=== PATIENT | male | born 1950 | race Caucasian/White ===

== ENCOUNTER 2018-03-05 11:52 | Emergency (ER) | payer BC, MEDICAID, MEDICARE ==
--- NOTE | 2018-03-05 13:00 | EDM.PDOC ---
ED HPI GENERAL MEDICAL PROBLEM - General Chief Complaint: Gastrointestinal Problem Stated Complaint: SYNCOPY Time Seen by Provider: 03/05/18 12:35 Source of Information: Reports: Patient, Family History Limitations: Reports: No Limitations - History of Present Illness INITIAL COMMENTS - FREE TEXT/NARRATIVE: Matheus [facility] by EMS following an apparent syncopal episode at approximately 2 am today. He got up to the bathroom, and that is the last thing he remembers. His cousin discovered him forenoon, and called EMS for transfer. Upon arrival, he is alert, orientated, and cooperative. His VSS. He also displays a blackened L forfoot in proximity to the 1st MTP joint, and dry gangrene is suspected. - Related Data Allergies Allergy/AdvReac Type Severity Reaction Status Date / Time No Known Allergies Allergy Verified 03/05/18 13:01 Home Meds: Home Meds Aspirin [[place] Aspirin] 81 mg PO DAILY 03/05/18 [History] Cholecalciferol (Vitamin D3) [Vitamin D3] 3,000 unit PO DAILY 03/05/18 [History] Cilostazol 100 mg PO BID 03/05/18 [History] Clopidogrel [Plavix] 75 mg PO BEDTIME 03/05/18 [History] Hydrochlorothiazide 12.5 mg PO DAILY 03/05/18 [History] Lisinopril 30 mg PO DAILY 03/05/18 [History] Magnesium 420 mg PO BID 03/05/18 [History] Metoprolol Succinate [Toprol XL 50mg] 5,025 mg PO BEDTIME 03/05/18 [History] Naproxen 250 mg PO BID PRN 03/05/18 [History] atorvaSTATin [Lipitor] 10 mg PO BEDTIME 03/05/18 [History] glipiZIDE [Glucotrol] 20 mg PO DAILY 03/05/18 [History] metFORMIN HCl [Metformin HCl] 1,500 mg PO BID 03/05/18 [History] Past Medical History Cardiovascular History: Reports: High Cholesterol, Hypertension Endocrine/Metabolic History: Reports: Diabetes, Type II ED ROS GENERAL - Review of Systems Review Of Systems: See Below Constitutional: Reports: Malaise, Fatigue HEENT: Reports: No Symptoms Respiratory: Reports: No Symptoms Cardiovascular: Reports: No Symptoms Endocrine: Reports: Fatigue, High Glucose GI/Abdominal: Reports: Diarrhea : Reports: Frequency, Incontinence Musculoskeletal: Reports: Muscle Pain (L flank), Muscle Stiffness Skin: Reports: Change in Color (blackened area overlying 1st MTP with adjacent exudate, and erythema extending into forefoot to mortise of L foot) Neurological: Reports: Pre-Existing Deficit, Syncope, Difficulty Walking Psychiatric: Reports: No Symptoms Hematologic/Lymphatic: Reports: No Symptoms Immunologic: Reports: No Symptoms - Physical Exam Exam: See Below Exam Limited By: No Limitations General Appearance: Alert, WD/WN, No Apparent Distress, Obese Eye Exam: Bilateral Eye: EOMI, Normal Inspection, PERRL Ears: Normal External Exam Nose: Normal Inspection Throat/Mouth: Other (poor dentition) Head Exam: Atraumatic, Normocephalic Neck: Normal Inspection, Supple Respiratory/Chest: No Respiratory Distress, Lungs Clear, No Accessory Muscle Use , Other (mild tenderness of lateral L costal margin) Cardiovascular: Regular Rate, Rhythm GI/Abdominal: Normal Bowel Sounds, Soft, No Organomegaly, No Distention, No Mass , Tender (L flank, no markings) (Male) Exam: No Hernia Rectal (Males) Exam: Deferred Neuro Exam (Abbreviated): Alert, CN II-XII Intact, Abnormal Reflexes, Sensory/ Motor Deficit Back Exam: Other (abrasions of upper back R>L) Extremities: Increased Warmth, Redness, Other (blackened areas of 1st MTP joint , with adjacent exudate and areas of erythmea extending accross forefoot) Psychiatric: Normal Mood, Flat Affect Skin Exam: Decubitus (L foot), Erythema, Increased Warmth Course - Vital Signs Text/Narrative:: Following assessment at the [facility], studies were performed including; ekg noting NSR, old Inf NM; chest x ray without infiltrates, normal cardiac size; CBC noted Hgb 14.8 gm, WBC 25,200, plts normal; CMP noted Cr 2.3, BUN 33; A1c 10.3%. Troponin I <0.017; noncontrast Head CT: old lacunar infarcts, no sign of bleeding or new CVA; case was discussed with [facility]...no beds; rediscussed with [facility]: no bed space; subsequently transfer accepted at [facility] per Dr Pablo. - Orders/Labs/Meds Orders: Active Orders 24 hr Category Date Time Status Chest 1V Frontal [CR] Stat Exams 03/05/18 12:53 Taken Head wo Cont [CT] Stat Exams 03/05/18 12:57 Taken UA W/MICROSCOPIC [URIN] Stat Lab 03/05/18 12:53 Ordered Sodium Chloride 0.9% [Normal Saline] 2,000 ml Med 03/05/18 14:15 Active IV ASDIRECTED Sodium Chloride 0.9% [Saline Flush] Med 03/05/18 14:03 Active 10 ml FLUSH ASDIRECTED PRN Peripheral IV Insertion Adult [OM.PC] Routine Oth 03/05/18 14:03 Ordered EKG 12 Lead [EK] Routine Ther 03/05/18 12:53 Ordered Medication Orders Sodium Chloride (Normal Saline) 2,000 mls @ 500 mls/hr IV ASDIRECTED ELSY Sodium Chloride (Saline Flush) 10 ml FLUSH ASDIRECTED PRN PRN Reason: Keep Vein Open Labs: Laboratory Tests 03/05/18 03/05/18 03/05/18 Range/Units 13:03 13:03 13:03 WBC 25.2 H (4.5-12.0) X10-3/uL RBC 4.95 (4.30-5.75) x10(6)uL Hgb 14.8 (11.5-15.5) g/dL Hct 44.0 (30.0-51.3) % MCV 88.9 (80-96) fL MCH 29.8 (27.7-33.6) pg MCHC 33.5 (32.2-35.4) g/dL RDW 12.0 (11.5-15.5) % Plt Count 457 H (125-369) X10(3)uL MPV 8.3 (7.4-10.4) fL Add Manual Diff Yes Neutrophils % (Manual) 88 H (46-82) % Lymphocytes % (Manual) 7 L (13-37) % Monocytes % (Manual) 5 (4-12) % Sodium 135 (135-145) mmol/L Potassium 3.9 (3.5-5.3) mmol/L Chloride 99 L (100-110) mmol/L Carbon Dioxide 26 (21-32) mmol/L BUN 33 H (7-18) mg/dL Creatinine 2.3 H* (0.70-1.30) mg/dL Est Cr Clr Drug Dosing TNP Estimated GFR (MDRD) 28 L (>60) BUN/Creatinine Ratio 14.3 (9-20) Glucose 289 H (80-116) mg/dL Hemoglobin A1c (4.5-6.2) % Calcium 8.9 (8.6-10.2) mg/dL Total Bilirubin 0.5 (0.1-1.3) mg/dL AST 39 H (5-25) IU/L ALT 24 (12-36) U/L Alkaline Phosphatase 104 (56-112) IU/L Troponin I < 0.017 L (<0.017-0.056) ng/mL Total Protein 7.8 (6.0-8.0) g/dL Albumin 2.3 L (3.2-4.6) g/dL Globulin 5.5 g/dL Albumin/Globulin Ratio 0.4 //18 Range/Units 13:03 WBC (4.5-12.0) X10-3/uL RBC (4.30-5.75) x10(6)uL Hgb (11.5-15.5) g/dL Hct (30.0-51.3) % MCV (80-96) fL MCH (27.7-33.6) pg MCHC (32.2-35.4) g/dL RDW (11.5-15.5) % Plt Count (125-369) X10(3)uL MPV (7.4-10.4) fL Add Manual Diff Neutrophils % (Manual) (46-82) % Lymphocytes % (Manual) (13-37) % Monocytes % (Manual) (4-12) % Sodium (135-145) mmol/L Potassium (3.5-5.3) mmol/L Chloride (100-110) mmol/L Carbon Dioxide (21-32) mmol/L BUN (7-18) mg/dL Creatinine (0.70-1.30) mg/dL Est Cr Clr Drug Dosing Estimated GFR (MDRD) (>60) BUN/Creatinine Ratio (9-20) Glucose (80-116) mg/dL Hemoglobin A1c 10.3 H (4.5-6.2) % Calcium (8.6-10.2) mg/dL Total Bilirubin (0.1-1.3) mg/dL AST (5-25) IU/L ALT (12-36) U/L Alkaline Phosphatase (56-112) IU/L Troponin I (<0.017-0.056) ng/mL Total Protein (6.0-8.0) g/dL Albumin (3.2-4.6) g/dL Globulin g/dL Albumin/Globulin Ratio Meds: Medications Generic Name Dose Route Start Last Admin Trade Name Freq PRN Reason Stop Dose Admin Sodium Chloride 2,000 mls @ 500 mls/hr 03/05/18 14:15 Normal Saline IV ASDIRECTED ELSY Sodium Chloride 10 ml 03/05/18 14:03 Saline Flush FLUSH ASDIRECTED PRN Keep Vein Open Departure - Departure Time of Disposition: 14:21 Disposition: DC/Tfer to Other 70 Condition: Poor Clinical Impression: Gangrene of left foot Syncope Qualifiers: Syncope type: unspecified Qualified Code(s): R55 - Syncope and collapse - Discharge Information Referrals: PCP,None [Primary Care Provider] - Forms: ED Department Discharge - Problem List & Annotations (1) Gangrene of left foot SNOMED Code(s): 12441642880588550 Code(s): I96 - GANGRENE, NOT ELSEWHERE CLASSIFIED Status: Acute Current Visit: Yes Annotation/Comment:: Matheus in need of surgical management, accepted at [facility]. (2) Syncope SNOMED Code(s): 248192942 Code(s): R55 - SYNCOPE AND COLLAPSE Status: Acute Current Visit: Yes Annotation/Comment:: Possible Syncope NOS. Case discussed with Dr Pablo. Qualifiers: Syncope type: unspecified Qualified Code(s): R55 - Syncope and collapse - Problem List Review Problem List Initiated/Reviewed/Updated: Yes - My Orders Last 24 Hours: My Active Orders 03/05/18 12:53 Chest 1V Frontal [CR] Stat UA W/MICROSCOPIC [URIN] Stat EKG 12 Lead [EK] Routine 03/05/18 12:57 Head wo Cont [CT] Stat 03/05/18 14:03 Sodium Chloride 0.9% [Saline Flush] 10 ml FLUSH ASDIRECTED PRN Peripheral IV Insertion Adult [OM.PC] Routine 03/05/18 14:15 Sodium Chloride 0.9% [Normal Saline] 2,000 ml IV ASDIRECTED - Assessment/Plan Last 24 Hours: My Active Orders 03/05/18 12:53 Chest 1V Frontal [CR] Stat UA W/MICROSCOPIC [URIN] Stat EKG 12 Lead [EK] Routine 03/05/18 12:57 Head wo Cont [CT] Stat 03/05/18 14:03 Sodium Chloride 0.9% [Saline Flush] 10 ml FLUSH ASDIRECTED PRN Peripheral IV Insertion Adult [OM.PC] Routine 03/05/18 14:15 Sodium Chloride 0.9% [Normal Saline] 2,000 ml IV ASDIRECTED Plan: Follow up at [facility] PCP.
[2018-03-05] MEDS ORDERED: Sodium Chloride 0.9% 10 ML Syringe FLUSH PRN (14:03)
[2018-03-05] MEDS ORDERED: Sodium Chloride 0.9% 2,000 ML IV SCH (14:15)
--- NOTE | 2018-03-05 15:07 | CT ---
INDICATION: Unwitnessed falls, recent episode of confusion. CT HEAD WITHOUT CONTRAST: Serial contiguous 2.5 and 5-mm sections were obtained through the brain without contrast. No comparison study was available. Total Exam DLP = 989.67 mGy-cm. The paranasal sinuses and the mastoid air cells showed no evidence of sinusitis. The mastoid air cells were relatively minimal in number. No cranial abnormality was suggested. Calcifications are noted in the vertebral and internal carotid arteries. There appear to be two small lacunar infarcts in the area of the left basal ganglia. Minimal septum pellucidum cavum is noted. No shift of midline structures or ventricular abnormalities were identified. Very minimal white matter changes may represent minimal microvascular disease, but should be correlated clinically, as other cause of leukoencephalopathy cannot be excluded. No evidence of a bleeding site or hematoma was identified. IMPRESSION: 1. No acute intracranial abnormality. 2. Cerebrovascular disease with arterial calcifications. 3. Minimal lacunar infarct suggested on the left at the basal ganglia. 4. Question very minimal microvascular disease type changes. Report was given in person to Dr. Marshall immediately after the examination was completed, 03/05/2018. [email or web address]
--- NOTE | 2018-03-05 15:39 | CR ---
INDICATION: Syncope. CHEST: An AP semi-upright view of the chest 03/05/2018 revealed the heart to be normal in size and shape. The aorta is calcified in the arch area with minimal tortuosity. Overlying EKG leads are noted. An active infiltrate or effusion was not identified. IMPRESSION: No acute process. MTDD
[2018-03-05] MEDS ORDERED: Sodium Chloride 0.9% 1,000 ML IV SCH (17:15)
== END 2018-03-05 15:35 | disposition other institution (70) ==
LOC: FB.ED 11:52
DX: E11.52 Type 2 diabetes mellitus with diabetic peripheral angiopathy with gangrene (principal); I96 Gangrene, not elsewhere classified; R55 Syncope and collapse; I10 Essential (primary) hypertension; E78.00 Pure hypercholesterolemia, unspecified; Z79.82 Long term (current) use of aspirin; Z79.899 Other long term (current) drug therapy
CPT/HCPCS: 36415; 70450; 71045; 80053; 81001; 83036; 84484; 85025; 93005; 96360; 99285; J7040; J7050